=== PATIENT | female | born 1980 | race Caucasian/White ===

== ENCOUNTER 2017-11-25 22:48 | Emergency (ER) | payer OTHER ==
[~2017-11-25] VITALS: Ht 185.4 cm; Wt 64.1 kg
[~2017-11-25 22:48] MED LIST: LEVO100T PO; PREN1TAB52 PO; VALA500T4 PO
[2017-11-25 23:25] LABS: BASOPHILS # (AUTO) 0.04 x10^3/uL (0-0.1); BASOPHILS % (AUTO) 1 % (0-1); EOSINOPHILS # (AUTO) 0.15 x10^3/uL (0-0.4); EOSINOPHILS % (AUTO) 3 % (1-7); LYMPHOCYTES # (AUTO) 2.04 x10^3/uL (1-3.4); LYMPHOCYTES % (AUTO) 43 % (22-44); MD NO; MEAN CORPUSCULAR HEMOGLOBIN 29.4 pg (27.0-34.8); MEAN CORPUSCULAR HGB CONC 33.6 g/dL (32.4-35.8); MEAN CORPUSCULAR VOLUME 87.5 fL (80-100); MEAN PLATELET VOLUME 7.9 fL (7.4-10.4); MONOCYTES # (AUTO) 0.54 x10^3/uL (0.2-0.8); MONOCYTES % (AUTO) 11 % (2-9); NEUTROPHILS # (AUTO) 2.02 x10^3/uL (1.8-6.8); NEUTROPHILS % (AUTO) 42 % (42-75); PLATELET COUNT 244 x10^3/uL (130-400); RED BLOOD COUNT 4.69 x10^6/uL (3.82-5.3); RED CELL DISTRIBUTION WIDTH 13.4 % (9.6-15.2)
[2017-11-25 23:32] LABS: ALBUMIN 4.1 g/dL (3.4-5.0); ANION GAP 7 mmol/L (5-15); CALCIUM 8.5 mg/dL (8.5-10.1); CHLORIDE 109 mmol/L (98-107); CREATININE 0.98 mg/dL (0.55-1.02)
[2017-11-25 23:42] LABS: HCG UR SG 1.008 (1.003-1.030)
[2017-11-25 23:52] LABS: CULTURE INDICATED? YES; MICROSCOPIC INDICATED
[2017-11-26 00:21] VITALS: BP 114/65
== END 2017-11-26 01:16 | disposition home or self-care (01) ==
LOC: ED 11-26 01:10
DX: R10.30 Lower abdominal pain, unspecified (principal); R30.0 Dysuria; N39.0 Urinary tract infection, site not specified; E03.9 Hypothyroidism, unspecified
CPT/HCPCS: 36415; 74176; 80048; 81001; 81025; 82040; 85025; 87086; 87147; 99285

== ENCOUNTER 2020-11-09 08:54 | Emergency (ER) | payer OTHER ==
[~2020-11-09] VITALS: Ht 185.4 cm; Wt 65.6 kg
[2020-11-09] MEDS ORDERED: LEVO125T PO (09:21)
--- NOTE | 2020-11-09 09:21 | NUR ---
ASSUMED CARE OF PT. X10 DAYS PT HAS NOTICED IRREGULAR BEAT WHERE SHE FEELS IT IS FAST AND SKIPS. SHE ALSO REPORTS FEELING CHEST TIGHTNESS WITH IT. DENIES PAIN. WENT TO WHERE SHE HAD ABNORMAL EKG AND WAS TOLD TO COME HERE. PT VSS. INDIAN. PT IN GOWN AND ON MONITORS. CALL LIGHT WITHIN REACH.
--- NOTE | 2020-11-09 10:15 | NUR ---
PT UP TO THE BATHROOM AND BACK, STEADY GAIT. PT REHOOKED TO MACHINE VSS. NADN. CALL LIGHT WITHIN REACH.
[2020-11-09 10:33] LABS: BASOPHILS % (AUTO) 1 % (0-1); EOSINOPHILS % (AUTO) 1 % (1-7); LYMPHOCYTES % (AUTO) 23 % (22-44); MEAN CORPUSCULAR HEMOGLOBIN 30.3 pg (27.0-34.8); MEAN PLATELET VOLUME 7.8 fL (7.4-10.4); MONOCYTES % (AUTO) 8 % (2-9); NEUTROPHILS % (AUTO) 68 % (42-75); PLATELET COUNT 251 x10^3/uL (130-400); RED CELL DISTRIBUTION WIDTH 13.2 % (9.6-15.2)
[2020-11-09 10:42] LABS: ALBUMIN 4.2 g/dL (3.4-5.0); ANION GAP 4 mmol/L (5-15); CALCIUM 8.7 mg/dL (8.5-10.1); CHLORIDE 110 mmol/L (98-107); CREATININE 0.93 mg/dL (0.55-1.02)
[2020-11-09 10:47] LABS: TROPONIN I < 0.015 ng/mL (0.000-0.045)
--- NOTE | 2020-11-09 10:51 | NUR ---
PT RESTING COMFORTABLY IN [facility] [place] [facility]. WAITING FOR LAB AND XRAY RESULTS. PT VSS, NIDIAN. CALL LIGHT WITHIN REACH.
[2020-11-09 10:58] LABS: MD NO
[2020-11-09 12:02] VITALS: BP 109/60
--- NOTE | 2020-11-09 12:06 | NUR ---
Patient given discharge instructions and they have confirmed that they understand the instructions. Patient ambulatory with steady gait.
== END 2020-11-09 12:21 | disposition home or self-care (01) ==
LOC: ED 12:00
DX: R00.2 Palpitations (principal); R07.89 Other chest pain; R42 Dizziness and giddiness; E03.9 Hypothyroidism, unspecified; R94.31 Abnormal electrocardiogram [ECG] [EKG]
CPT/HCPCS: 36415; 71046; 80048; 82040; 84443; 84484; 84703; 85025; 93005; 99285